=== PATIENT | male | born 1935 | race Asian ===

== ENCOUNTER 2017-06-18 10:29 | Day surgery (SDC) | payer MEDICARE, OTHER ==
[2017-06-18] MEDS ORDERED: PROPOFOL 40 ML (13:11)
== END 2017-06-18 17:36 | disposition home or self-care (01) ==
LOC: GIL 10:29
DX: K29.70 Gastritis, unspecified, without bleeding (principal); K44.9 Diaphragmatic hernia without obstruction or gangrene; K21.9 Gastro-esophageal reflux disease without esophagitis; E78.5 Hyperlipidemia, unspecified; I10 Essential (primary) hypertension; Z85.028 Personal history of other malignant neoplasm of stomach
CPT/HCPCS: 43239; 87081